=== PATIENT | female | born 1995 | race Two or more races ===

== ENCOUNTER 2022-09-28 11:54 | Emergency (ER) | payer OTHER ==
[~2022-09-28] VITALS: Ht 157.5 cm; Wt 58.1 kg
== END 2022-09-28 17:31 | disposition home or self-care (01) ==
LOC: ER 11:54
DX: B34.9 Viral infection, unspecified (principal); Z20.822 Contact with and (suspected) exposure to COVID-19

== ENCOUNTER 2022-11-14 09:29 | Emergency (ER) | payer OTHER ==
[~2022-11-14] VITALS: Ht 157.5 cm; Wt 61.2 kg
== END 2022-11-14 13:41 | disposition home or self-care (01) ==
LOC: ER 09:29
DX: L03.811 Cellulitis of head [any part, except face] (principal); Z88.0 Allergy status to penicillin